=== PATIENT | female | born 1960 | race Two or more races ===

== ENCOUNTER 2020-08-18 19:22 | Inpatient (IN) | payer OTHER ==
[~2020-08-18] VITALS: Ht 160 cm; Wt 109.8 kg
[2020-08-19] MEDS ORDERED: INTESTINEX680 M1 (08:09)
[2020-08-19] MEDS ORDERED: GAS RELIEF125 M1 (08:09)
[2020-08-19] MEDS ORDERED: HYOSCYAMINE0.125 M1 (08:09)
[2020-08-26] MEDS ORDERED: INTEGRA F CAPS1 EACH PO (11:06)
[2020-08-26] MEDS ORDERED: PRILOSEC OTC20 MG PO (11:06)
[2020-08-26] MEDS ORDERED: INTESTINEX680 M1 PO (11:06)
[2020-08-26] MEDS ORDERED: AMOX1TAB5 PO (11:06)
[2020-08-26] MEDS ORDERED: IMODIUM A-D2 M2 PO (11:06)
[2020-08-26] MEDS ORDERED: QUESTRAN PACKET4 GM PO (11:06)
[2020-08-26] MEDS ORDERED: PERCOCET 5-3251 EACH PO (14:48)
== END 2020-08-26 16:04 | disposition home or self-care (01) | DRG 329 ==
LOC: ER 19:22 → SURG 22:27
PROVIDERS: ADMIT Surgery; ATTEND Surgery
PROC: 07BB0ZX Excision of Mesenteric Lymphatic, Open Approach, Diagnostic (ICD-10-PCS; 2020-08-19)
PROC: 0DBU0ZZ Excision of Omentum, Open Approach (ICD-10-PCS; 2020-08-19)
PROC: 0DUP07Z Supplement Rectum with Autologous Tissue Substitute, Open Approach (ICD-10-PCS; 2020-08-19)
PROC: 3E0F7SF Introduction of Other Gas into Respiratory Tract, Via Natural or Artificial Opening (ICD-10-PCS; 2020-08-19)
PROC: 05HY33Z Insertion of Infusion Device into Upper Vein, Percutaneous Approach (ICD-10-PCS; 2020-08-19)
PROC: 0DTE0ZZ Resection of Large Intestine, Open Approach (ICD-10-PCS; principal; 2020-08-19 22:30)
DX: K57.20 Diverticulitis of large intestine with perforation and abscess without bleeding (principal); K65.8 Other peritonitis; R59.0 Localized enlarged lymph nodes; E66.8 Other obesity; G47.33 Obstructive sleep apnea (adult) (pediatric); Z20.822 Contact with and (suspected) exposure to COVID-19